=== PATIENT | female | born 2000 | race Two or more races ===

== ENCOUNTER 2024-02-25 12:56 | Emergency (ER) | payer OTHER ==
[~2024-02-25] VITALS: Ht 160 cm; Wt 56.7 kg
[2024-02-25 13:22] VITALS: BP 119/81; O2SAT 100
[2024-02-25 15:21] LABS: HEMATOCRIT 40.3 % (36.0-45.00); HEMOGLOBIN 13.7 g/dL (12.0-15.00); MEAN CELL VOLUME 88.5 fL (80.00-100.00); MEAN CORPUSCULAR HEMOGLOBIN 30.1 pg (27.00-32.0); PLATELET COUNT 244 K/uL (150-450); RED BLOOD COUNT 4.55 M/uL (4.00-6.00); RED CELL DISTRIBUTION WIDTH 12.6 % (11.5-14.5)
== END 2024-02-25 22:04 | disposition home or self-care (01) ==
LOC: ER 12:58
PROVIDERS: General Practice
DX: J06.9 Acute upper respiratory infection, unspecified (principal); R05.8 Other specified cough; Z20.822 Contact with and (suspected) exposure to COVID-19